=== PATIENT | male | born 1955 | race Caucasian/White ===

== ENCOUNTER 2021-02-17 13:12 | Outpatient (CLI) | payer MEDICARE | END 2021-02-17 13:13 | disposition home or self-care (01) | LOC: LABBT 13:12 | PROVIDERS: ATTEND Orthopaedic Surgery | DX: Z01.818 Encounter for other preprocedural examination (principal); M17.11 Unilateral primary osteoarthritis, right knee; Z20.822 Contact with and (suspected) exposure to COVID-19 | CPT/HCPCS: 71046; 80048; 81003; 85025; 85610; 86850; 86900; 86901; 87081; U0003; U0005; 93005; 93010 ==

== ENCOUNTER 2021-02-22 07:08 | Observation (INO) | payer MEDICARE ==
[2021-02-16 11:21] VITALS: BMI 28.5
[2021-02-17 14:33] LABS: Bilirubin Neg (Negative); Blood, Urine Negative (Negative); Clarity Clear (Clear); Glucose, Urine (Dipstick) Normal (Negative); Ketone, Urine Negative (Negative); Leukocyte Negative (Negative); Nitrite Negative (Negative); Protein, Urine (Dipstick) Negative (Neg-Trace); Specific Gravity, Urine 1.015 (1.002-1.036); Urobilinogen Normal mg/dL (Less than 2)
[2021-02-17 14:41] LABS: #Basophils 0.1 10x3/uL (0.0-0.2); #Eosinphils 0.2 10x3/uL (0.0-0.5); #Monocytes 0.6 10x3/uL (0.0-1.1); #Neutrophils 4.6 10x3/uL (1.5-8.4); %Eosinophils 2.4 % (0.0-6.0); %Lymphocytes 23.1 % (18.0-47.0); %Neutrophils 65.1 % (40.0-75.0); Hemoglobin 15.1 g/dL (13.5-17.5); Mean Corpuscular HGB CONC 33.5 g/dL (32.0-36.0); Mean Corpuscular Hemoglobin 29.7 pg (27.0-33.0); Mean Corpuscular Volume 88.6 fl (81.2-95.1); Mean Platelet Volume 10.6 fl (7.4-10.4); Platelet Count 267 10x3/uL (150-450); RBC Distribution Width 12.6 % (11.5-14.5); Red Blood Cell (RBC) Count 5.09 10x6/uL (4.32-5.72); White Blood Cell (WBC) Count 7.1 10x3/uL (3.5-10.5)
[2021-02-17 14:46] LABS: Prothrombin Time 10.8 sec (9.5-12.1)
[2021-02-17 15:05] LABS: Anion Gap 11 mmol/L (10-20); BUN (Urea Nitrogen) 15 mg/dL (8.4-25.7); Calc. Creatinine Clearance 0 mL/min (70-130); Calcium 9.1 mg/dL (7.8-10.44); Carbon Dioxide 27 mmol/L (23-31); Chloride 105 mmol/L (98-107); Glucose 92 mg/dL (80-115); Potassium 4.4 mmol/L (3.5-5.1); Sodium 139 mmol/L (136-145)
[2021-02-18 00:15] LABS: SARS-CoV-2 PCR by NAA Not Detected (NotDetected)
[2021-02-22] MEDS ORDERED: Tranexamic Acid 1,000 MG/10 ML VIAL ONE (07:37)
[2021-02-22] MEDS ORDERED: Clindamycin/D5W 600 mg/50 ml Premix Bag ONE (07:37)
[2021-02-22] MEDS ORDERED: Sodium Chloride 0.9% 100 ML ONE (07:37)
[2021-02-22] MEDS ORDERED: Vancomycin 1.5 GRAM/300 ML BAG 1.5 GM in Premix Bag 1 BAG IVPB SCH ×2 (08:00→21:00)
[2021-02-22] MEDS ORDERED: Midazolam HCl 2 mg/2 ml Vial ONE (08:05)
[2021-02-22] MEDS ORDERED: Fentanyl 100 MCG/2 ML VIAL ONE ×4 (08:05→11:57)
[2021-02-22] MEDS ORDERED: Bupivacaine HCl 0.5%/Epinephrine 1:200,000/PF 30 ml Vial ONE (09:34)
[2021-02-22] MEDS ORDERED: PROPOFOL 200 MG/20 ML VIAL ONE (09:34)
[2021-02-22] MEDS ORDERED: Dexamethasone 20 MG/5 ML VIAL ONE (09:34)
[2021-02-22] MEDS ORDERED: Lidocaine 1% PF 5 ML VIAL ONE (09:34)
[2021-02-22] MEDS ORDERED: Ketorolac Tromethamine 30 MG/ML VIAL ONE (09:34)
[2021-02-22] MEDS ORDERED: Ondansetron PF 4 MG/2 ML Vial ONE (09:34)
[2021-02-22] MEDS ORDERED: Bupivacaine PF 0.5% 30 ML VIAL ONE (10:21)
[2021-02-22] MEDS ORDERED: Fentanyl 100 MCG/2 ML VIAL IV PRN (10:44)
[2021-02-22] MEDS ORDERED: Promethazine HCl 25 MG/ML VIAL IM PRN ×3 (10:45→11:25)
[2021-02-22] MEDS ORDERED: traMADol HCl 50 MG TAB PO PRN ×2 (10:45)
[2021-02-22] MEDS ORDERED: Ropivacaine 0.2% 550 ML 550 ML NERVE BLCK SCH (10:45)
[2021-02-22] MEDS ORDERED: Zolpidem Tartrate 5 MG TAB PO PRN ×2 (10:45→11:25)
[2021-02-22] MEDS ORDERED: Ondansetron PF 4 MG/2 ML Vial IVP PRN ×2 (10:45→11:25)
[2021-02-22] MEDS ORDERED: Promethazine HCl 25 MG/ML VIAL IVPB PRN (11:22)
[2021-02-22] MEDS ORDERED: Ondansetron HCl/PF 4 MG/2 ML Vial IVP PRN (11:22)
[2021-02-22] MEDS ORDERED: diphenhydrAMINE 25 MG CAP PO PRN (11:25)
[2021-02-22] MEDS ORDERED: Acetaminophen 325 MG TAB PO PRN (11:25)
[2021-02-22] MEDS ORDERED: Tranexamic Acid 1,000 MG in Sodium Chloride 0.9% 100 ML IVPB SCH (11:30)
[2021-02-22] MEDS: Ketorolac Tromethamine 30 MG/ML VIAL IVP SCH ×2 (14:03→17:29)
[2021-02-22] MEDS: Clindamycin/D5W 900 MG in Premix Bag 1 BAG IVPB SCH ×2 (14:12→20:55)
[2021-02-22] MEDS: Sodium Chloride 0.9% 1,000 ML IV SCH (15:38)
[2021-02-22] MEDS: HYDROcodone/Acetaminophen 10/325 mg Tablet PO PRN ×2 (15:39→20:56)
[2021-02-22] MEDS: Aspirin 81 mg Enteric Coated Tablet PO SCH (20:56)
[2021-02-23] MEDS: Ketorolac Tromethamine 30 MG/ML VIAL IVP SCH ×5 (00:44→23:20)
[2021-02-23] MEDS: HYDROcodone/Acetaminophen 10/325 mg Tablet PO PRN ×6 (00:51→22:17)
[2021-02-23] MEDS: Sodium Chloride 0.9% 1,000 ML IV SCH ×3 (01:48→18:16)
[2021-02-23 06:24] LABS: Hemoglobin 13.7 g/dL (14.0-18.0); Mean Corpuscular HGB CONC 32.7 g/dL (32.0-36.0); Mean Corpuscular Hemoglobin 30.2 pg (27.0-31.0); Mean Corpuscular Volume 92.5 fL (78.0-98.0); Platelet Count 226 thou/uL (130-400); Red Blood Cell (RBC) Count 4.55 mill/uL (4.70-6.10); White Blood Cell (WBC) Count 13.2 thou/uL (4.8-10.8)
[2021-02-23] MEDS: Ferrous Gluconate 324 MG TAB PO SCH ×2 (08:29→20:40)
[2021-02-23] MEDS: Senokot S 8.6-50 MG TAB PO SCH ×2 (08:29→20:40)
[2021-02-23] MEDS: Aspirin 81 mg Enteric Coated Tablet PO SCH ×2 (08:29→20:40)
[2021-02-23] MEDS: Multivitamin W/ Minerals 1 TAB PO SCH (08:29)
[2021-02-24] MEDS: HYDROcodone/Acetaminophen 10/325 mg Tablet PO PRN ×3 (02:13→10:23)
[2021-02-24 04:27] LABS: Mean Corpuscular HGB CONC 33.6 g/dL (32.0-36.0); Mean Corpuscular Hemoglobin 31.2 pg (27.0-31.0); Mean Platelet Volume 8.1 fL (7.4-10.4); Platelet Count 195 thou/uL (130-400); RBC Distribution Width 12.2 % (11.5-14.5); Red Blood Cell (RBC) Count 4.16 mill/uL (4.70-6.10); White Blood Cell (WBC) Count 9.9 thou/uL (4.8-10.8)
[2021-02-24] MEDS: Sodium Chloride 0.9% 1,000 ML IV SCH (05:11)
[2021-02-24] MEDS: Ketorolac Tromethamine 30 MG/ML VIAL IVP SCH (05:31)
[2021-02-24 07:41] VITALS: BP 159/82; TEMP 98
[2021-02-24] MEDS: Aspirin 81 mg Enteric Coated Tablet PO SCH (09:12)
[2021-02-24] MEDS: Ferrous Gluconate 324 MG TAB PO SCH (09:12)
[2021-02-24] MEDS: Multivitamin W/ Minerals 1 TAB PO SCH (09:12)
[2021-02-24] MEDS: Senokot S 8.6-50 MG TAB PO SCH (09:12)
== END 2021-02-24 11:17 | disposition home or self-care (01) ==
LOC: SDC 07:08 → SJJU 13:55
PROVIDERS: ADMIT Orthopaedic Surgery; ATTEND Orthopaedic Surgery
PROC: 0SRC0J9 Replacement of Right Knee Joint with Synthetic Substitute, Cemented, Open Approach (ICD-10-PCS; principal; 2021-02-22)
PROC: 8E0YXBZ Computer Assisted Procedure of Lower Extremity (ICD-10-PCS; 2021-02-22)
PROC: 3E0T3BZ Introduction of Anesthetic Agent into Peripheral Nerves and Plexi, Percutaneous Approach (ICD-10-PCS; 2021-02-22)
DX: M17.11 Unilateral primary osteoarthritis, right knee (principal); I10 Essential (primary) hypertension; K21.9 Gastro-esophageal reflux disease without esophagitis; Z79.82 Long term (current) use of aspirin; Z79.899 Other long term (current) drug therapy; Z88.0 Allergy status to penicillin; Z20.822 Contact with and (suspected) exposure to COVID-19
CPT/HCPCS: 20985; 27447; 64448; 73560; 80048; 81003; 85025; 85027 ×2; 85610; 86850; 86900; 86901; 97110 ×3; 97116 ×3; 97139; 97530 ×2; A4306; C1713; C1776; U0003; U0005; 36415; J1100; J1885; J2250; J2405; J2704; J2795; J3010; J3370; J3490; J7050; S0020